=== PATIENT | female | born 1960 | race Caucasian/White ===

== ENCOUNTER → 2019-09-14 10:30 | Outpatient (CLI) | payer BC, SELFPAY ==
[2019-09-15 15:07] LABS: Covid-19 Nasal PCR Sendout Lex NOT DETECTED
== END ==
PROVIDERS: PCP Family Medicine; Visit Provider Family Medicine
DX: Z03.818 Encounter for observation for suspected exposure to other biological agents ruled out (principal)
CPT/HCPCS: U0004

== ENCOUNTER → 2019-12-09 09:42 | Outpatient (CLI) | payer BC, SELFPAY ==
--- NOTE | 2019-12-09 09:49 | XR_ITS ---
PROCEDURE: XR LUMBAR SPINE MIN 4V CLINICAL INDICATION: LOW BACK PAIN AND RADICULOPATHY COMPARISON: CR Lumbar spine from 10/27/2018 FINDINGS: No fracture or dislocation. No lytic or blastic change. There is normal mineralization. There is mild lumbar curvature convex left. No fracture or dislocation. Mild kyphosis of the thoracolumbar junction. There is degenerative disc disease at L2-L3 L3-L4 and L4-5 and mild chronic wedging appearance of L1.. There is minimal wedging also noted at L3-L4 and L5. This may also be chronic but appears slightly progressed compared to 10/27/2018. The SI joints have an unremarkable appearance. There is a moderate amount of retained colonic feces. IMPRESSION: 1. Mild lumbar spondylosis as described above. 2. Mild wedging of L3-L4 and L5 which may be chronic but appears slightly greater compared to 10/27/2018. MRI may provide further evaluation to determine if there is any acute wedge compression changes. Dictated by: Ryan Guadalupe MD 12/09/2019 17:18 Ryan Guadalupe MD in [place] 12/09/2019 17:18
== END ==
PROVIDERS: PCP Family Medicine; Visit Provider Family Medicine
DX: M54.5 Low back pain (principal); M54.16 Radiculopathy, lumbar region
CPT/HCPCS: 72110

== ENCOUNTER → 2020-03-10 11:55 | Outpatient (CLI) | payer BC, SELFPAY ==
[2020-03-11 13:37] LABS: Covid-19 Nasal PCR Sendout Lex NOT DETECTED
== END ==
PROVIDERS: PCP Family Medicine; Referring Provider Family Medicine; Visit Provider Family Medicine
DX: Z03.818 Encounter for observation for suspected exposure to other biological agents ruled out (principal)
CPT/HCPCS: U0004

== ENCOUNTER 2020-04-14 08:00 | Outpatient (RCR) | payer BC, SELFPAY | END 2020-04-14 08:05 | disposition home or self-care (01) | LOC: PT 08:00 | PROVIDERS: PCP Family Medicine; Visit Provider Orthopaedic Surgery | DX: M54.5 Low back pain (principal) | CPT/HCPCS: 97010; 97014; 97110; 97163; G0283 ==

== ENCOUNTER → 2020-06-03 12:02 | Outpatient (CLI) | payer BC, SELFPAY | PROVIDERS: PCP Family Medicine; Visit Provider Family Medicine | DX: Z03.818 Encounter for observation for suspected exposure to other biological agents ruled out (principal); Z20.822 Contact with and (suspected) exposure to COVID-19 | CPT/HCPCS: U0003 ==

== ENCOUNTER 2020-06-11 14:07 | Emergency (ER) | payer BC, SELFPAY ==
[2020-06-11 14:10] VITALS: BP 98/61; PULSE 85; RESP 20; TEMP 36.8; O2SAT 99; BMI 34.7
[2020-06-11 14:30] LABS: UTC Strep Screen (Rapid) Negative (Negative)
--- NOTE | 2020-06-11 14:38 | HMH.EDUTC ---
[facility] Disposition Clinical Impression: Bronchitis Sinusitis Qualifiers: Sinusitis location: unspecified location Chronicity: unspecified Qualified Code(s): J32.9 - Chronic sinusitis, unspecified Disposition: Home, Self-Care Condition on Discharge: Good Instructions: Sinusitis, Sinus Headache, Acute Bronchitis, DI for Sinusitis, DI for Acute Bronchitis Additional Instructions: ? Start antibiotic today. Be sure to complete entire prescription even if feeling better ? Monitor temp. Tylenol every 4 hours as needed and / or ibuprofen every 6 hours as needed ( As long as your primary care physician has told you that it ok to take both. For fever/aches/pains ER if no less than 101 despite Tylenol or Motrin ? Humidifier/vaporizer or hot steamy shower ? Mucinex Over the counter during the day for your cough and cough suppressant only at night. Be sure to drink lots of water. *Tessalon Perles will not cause drowsiness but use at bedtime to help stop cough so that you may get some rest. *Start steroid today. Helps with inflammation therefore, cough and wheezing. Follow directions on the package. Reviewed side effects. Patient reports taking them before. Follow up IMMEDIATELY for new or worsening of symptoms OR no noticeable improvement over the next 48-72 hours. 911 immediately for any life threatening symptoms such as chest pain or difficulty breathing Prescriptions: methylPREDNISolone [Medrol 4mg tab] 4 mg PO DIRECTED #21 tab Transmission Status: Pending to [facility] Benzonatate [Tessalon Perle 100mg Cap*] 100 mg PO TID PRN #30 cap PRN Reason: Cough Transmission Status: Pending to [facility] Azithromycin [Z-Emmett 250mg Tab] 250 mg PO DIRECTED #6 tab Transmission Status: Pending to [facility] Referrals: Kalie James [Primary Care Provider] - As needed Time of Disposition: 14:49 Medical Decision Making - Jon Inquiry Pt receiving controlled substance: No Jon was queried for this patient: No Vital Signs: 06/11/20 14:10 Temperature 98.2 F Temperature Source Oral Pulse Rate [Left Brachial] 85 Respiratory Rate 20 Blood Pressure [Left Arm] 98/61 L Blood Pressure Mean [Left Arm] 73 Blood Pressure Source [Left Arm] Automatic Cuff Blood Pressure Position [Left Arm] Sitting 02 Sat by Pulse Oximetry 99 Oxygen Delivery Method Room Air - Lab Data Lab results reviewed: Yes: I reviewed the patient's lab results. Lab Results 06/11/20 14:18: Strep Scn Rapid Clinic Negative Orders (Tests/Meds): ORDERS Category Date Time Status Strep Screen Confirmation Stat Micro 06/11/20 14:18 Received [facility] HPI - General Stated complaint: Sore Throat Cough soreness in chest Time Seen by Provider: 06/11/20 14:41 Mode of Arrival: Ambulatory Source of Information: Patient Limitations: No Limitations Description of Symptoms (Recalled from Triage Doc. by RN): PATEINT SORE THROAT AND SORE CHEST X 2 WEEKS HEENT Symptoms (Recalled from RN notes): Yes Resp Symptoms (Recalled from RN notes): No Skin Symptoms (Recalled from RN notes): No MS Symptoms (Recalled from RN notes): No Functional Status (Recalled from RN notes): WNL - History of Present Illness Provider Complaint: Patient states that she has been having sore throat and feels like she is having sinus pressure States that she has some drainage in the back of her throat and feels like it is trying to move into her chest like she had before with bronchitis States that she isnt coughing anything up and last week she felt pressure in her sinuses and felt like her teeth was sore States that ribs feel sore at times sneezing and cough. Denies Productive cough - Related Data Previous Rx's Medication Instructions Recorded Ibuprofen [Ibuprofen 600mg 600 mg PO Q6HP PRN #30 tab 12/15/18 Tablet] Azithromycin [Z-Emmett 250mg Tab] 250 mg PO DIRECTED #6 tab 06/11/20 Benzonatate [Tessalon Perle 100mg 100 mg PO TID PRN #30 cap
[2020-06-11 14:58] VITALS: BP 98/61; PULSE 85; RESP 20; TEMP 36.8; O2SAT 99
== END 2020-06-11 15:00 | disposition home or self-care (01) ==
PROVIDERS: Emergency Provider Nurse Practitioner; PCP Family Medicine
DX: J20.9 Acute bronchitis, unspecified (principal); J32.9 Chronic sinusitis, unspecified
CPT/HCPCS: 87880; 99202; G0463

== ENCOUNTER → 2020-08-08 14:53 | Outpatient (POV) | payer BC, SELFPAY | PROVIDERS: Visit Provider Nurse Practitioner Family | DX: Z00.00 Encounter for general adult medical examination without abnormal findings (principal) ==

== ENCOUNTER → 2020-10-26 13:08 | Outpatient (CLI) | payer BC, SELFPAY | PROVIDERS: Visit Provider Internal Medicine Gastroenterology | DX: Z01.812 Encounter for preprocedural laboratory examination (principal); Z20.822 Contact with and (suspected) exposure to COVID-19; Z12.11 Encounter for screening for malignant neoplasm of colon | CPT/HCPCS: U0003 ==

== ENCOUNTER 2020-10-28 07:06 | Day surgery (SDC) | payer BC, SELFPAY ==
[2020-10-25 09:10] VITALS: BMI 34.7
[2020-10-28] VITALS (7 sets, daily range): BP systolic 122–158; BP diastolic 64–82; PULSE 63–76; RESP 18; TEMP 36.2–36.5; O2SAT 92–100
--- NOTE | 2020-10-28 07:45 | HMH.ANESCL ---
[facility] Anesthesia Checklist - Structural Data Admitted From: Home Planned Operative Procedure/s: colonoscopy Consent for Planned Operative Procedure(s) Verified: Yes - Airway Assessment C-Spine Mobility Assessed: Yes TMJ Mobility Assessed: Yes Dentition: Good Dentition - Neurological Assessment Level of Consciousness: Awake, Alert, Appropriate - Anesthesia Plan Anesthesia Risk discussed: Yes Anesthesia Plan: Verified ASA Class: II Anesthesia Type: MAC [facility] History I have reviewed the patient's past medical history: Yes Medical History: Reports:: Cancer (BREAST) Denies:: Diabetes Mellitus Type 1, Diabetes Mellitus Type 2, Internal Pacemaker, MRSA, Seizures *Have you ever received a pneumonia vaccine?: No *Have you received a flu vaccine this season?: No Anesthesia experience/problems:: none Laterality Cases: Bilateral: Mastectomy Other Surgeries: No: Pacemaker Amputation: No Fractures: No - *Social History Last grade of school completed: High school graduate Smoking Status: Never smoker #Yrs smoked (if former smoker): 2 Alcohol Intake: never Substance Use Type: denies use *Occupational Status:: other Housing: house Household Members: spouse *Travel in the last 8 weeks: None Family Hx:: Cancer
--- NOTE | 2020-10-28 08:06 | HMH.PROC ---
[facility] Procedure Note Procedure Note:: Colonoscopy Procedure Report: Colonoscopy Endoscopist: Willie Montez II, MD Referring physician: Kalie James DO Date of Procedure: October 28, 2020 Equipment: Olympus 190 variable stiffness pediatric colonoscope Sedation: MAC sedation Indication: Mrs. Arboleda is a 60-year-old female who has had some change in bowel habits and is here for diagnostic colonoscopy. The patient does have chronic longstanding constipation and usually may skip 1 or 2 days without a bowel movement. That has been her norm. A few months ago she had some episodes of bowel urgency with seepage before she could get to the bathroom. This was new in onset. She reports no abdominal pain, weight loss, rectal bleeding or family history of colon cancer. Her father had colon polyps. This is her first colonoscopy. Procedure: Prior to the procedure, a history and physical exam was performed, and patient's medications and allergies were reviewed. The risks, benefits and alternatives of the sedation and procedure were discussed with the patient. All questions were answered and informed consent was obtained. The patient was brought to the procedure room. Patient identification and proposed procedure were verified by the physician and the nurse. The patient was placed in a left lateral decubitus position and the scope was passed under direct vision. Throughout the procedure, the patient's blood pressure, pulse, and oxygen saturations were monitored continuously. The colonoscopy was accomplished without difficulty. The patient tolerated the procedure well. Findings: On digital rectal examination there was normal rectal sphincter tone. There were no external hemorrhoids. The colonoscope was introduced through the anal canal to the rectum and advanced to the cecum. The ileocecal valve and appendiceal orifice were identified. The scope was advanced a short distance into the ileum which appeared grossly normal. The scope was then withdrawn into the colon. The cecum, ascending, transverse, descending, sigmoid and rectum were grossly normal. There were no mucosal abnormalities identified. There was a moderate amount of solid plant residue throughout the colon that impaired visualization minor amount. Upon retroflexion within the rectum there were grade 1 internal hemorrhoids.The preparation was fair throughout with Binger Preparation Score of 6-7 out of 9. The cecal time was 10 minutes. Impression: 1. Normal colonoscopy with intubation of the terminal ileum Plan: I do feel the patient has some pelvic floor dyssynergia with some outlet constipation and incomplete defecation. I do feel this fecal incontinence is intermittent overflow fecal incontinence and possibly there is some likely sacral nerve (S2-S3 nerve root) injury playing some role. I do not feel any abnormality of anal sphincter tone. I will inquire about bladder control and any lower chronic back pain.
== END 2020-10-28 09:29 | disposition home or self-care (01) ==
LOC: OUTP 07:08
PROVIDERS: PCP Family Medicine; Visit Provider Internal Medicine Gastroenterology
PROC: 0DJD8ZZ Inspection of Lower Intestinal Tract, Via Natural or Artificial Opening Endoscopic (ICD-10-PCS; CPT 45378; principal; 2020-10-28 08:00)
DX: R15.9 Full incontinence of feces (principal); Z86.010 Personal history of colon polyps; Z85.3 Personal history of malignant neoplasm of breast; E78.5 Hyperlipidemia, unspecified; F32.9 Major depressive disorder, single episode, unspecified; K21.9 Gastro-esophageal reflux disease without esophagitis; Z79.899 Other long term (current) drug therapy; Z80.0 Family history of malignant neoplasm of digestive organs
CPT/HCPCS: 45378

== ENCOUNTER 2022-10-07 15:06 | Emergency (ER) | payer BC, SELFPAY ==
[2022-10-07 15:08] VITALS: BP 115/71; PULSE 71; RESP 16; TEMP 36.6; O2SAT 98; BMI 34.7
--- NOTE | 2022-10-07 15:20 | XR_ITS ---
PROCEDURE INFORMATION: Exam: XR Left Hand Exam date and time: 10/07/2022 3:24 PM Age: 62 years old Clinical indication: Pain; Finger(s); Left; Additional info: Injury left middle finger TECHNIQUE: Imaging protocol: Radiologic exam of the left hand. Views: 3 or more views. COMPARISON: No relevant prior studies available. FINDINGS: Bones/joints: Dorsal dislocation of the 3rd middle phalanx. No fractures. Other joints are well preserved. Soft tissues: No soft tissue gas, radiopaque foreign bodies, or masses. IMPRESSION: Dorsal dislocation of the 3rd middle phalanx of the left hand. No fracture is identified.
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
[2022-10-07 15:55] VITALS: BP 115/71; PULSE 71; RESP 16; TEMP 36.6; O2SAT 98
== END 2022-10-07 15:57 | disposition home or self-care (01) ==
PROVIDERS: Emergency Provider Emergency Medicine; PCP Family Medicine
DX: S63.283A Dislocation of proximal interphalangeal joint of left middle finger, initial encounter (principal); W22.8XXA Striking against or struck by other objects, initial encounter; Z23 Encounter for immunization
CPT/HCPCS: 26770; 73130; 90715; 96372; 99283; 99284

== ENCOUNTER 2023-01-04 15:00 | Outpatient (RCR) | payer BC, SELFPAY | END 2023-01-04 15:05 | disposition home or self-care (01) | LOC: OT 15:00 | PROVIDERS: PCP Family Medicine; Visit Provider Orthopaedic Surgery Hand Surgery | DX: S63.287A Dislocation of proximal interphalangeal joint of left little finger, initial encounter (principal) | CPT/HCPCS: 97010; 97014; 97110; 97140; 97164; 97166; G0283 ==

== ENCOUNTER → 2023-03-15 12:58 | Outpatient (CLI) | payer BC, SELFPAY ==
--- NOTE | 2023-03-15 13:13 | US_ITS ---
FINAL REPORT CLINICAL HISTORY: HISTORY OF BREAST CANCER AXILLARY MASS FINDINGS: Limited sonographic images of the left axilla were obtained. There are several presumed nodes measuring up to 2.3 cm which are nonspecific but may be reactive or neoplastic. IMPRESSION: Nonspecific nodes in the left axilla. If indicated, follow-up PET-CT may be helpful. Reviewed, Interpreted and Dictated by Roque Hannon III, MD Transcribed by Nazanin Gamboa Authenticated and [facility]
== END ==
LOC: RAD 13:01
PROVIDERS: PCP Family Medicine; Visit Provider Family Medicine
DX: R22.32 Localized swelling, mass and lump, left upper limb (principal); Z85.3 Personal history of malignant neoplasm of breast
CPT/HCPCS: 76882

== ENCOUNTER → 2023-05-08 15:00 | Outpatient (CLI) | payer BC, SELFPAY | PROVIDERS: PCP Family Medicine; Visit Provider Family Medicine | DX: G47.33 Obstructive sleep apnea (adult) (pediatric) (principal); G47.36 Sleep related hypoventilation in conditions classified elsewhere; R06.83 Snoring; R40.0 Somnolence; R41.3 Other amnesia | CPT/HCPCS: G0399 ==

== ENCOUNTER 2023-05-14 16:42 | Outpatient (CLI) | payer BC, SELFPAY ==
[2023-05-14 17:48] LABS: Blood Urea Nitrogen 19 mg/dl (7-17)
[2023-05-14 17:49] LABS: Estimated Glomerular Filt Rate 84 ml/min (>60); GFR (African American) 102 ML/MIN (>60)
== END 2023-05-14 23:59 ==
LOC: LAB 16:42
PROVIDERS: PCP Family Medicine; Visit Provider Internal Medicine
DX: R07.9 Chest pain, unspecified (principal)
CPT/HCPCS: 36415; 82565; 84520

== ENCOUNTER 2023-05-17 11:57 | Outpatient (CLI) | payer BC, SELFPAY ==
--- NOTE | 2023-05-17 11:57 | CT_ITS ---
APPROVED REPORT [employer]: CLINICAL INDICATION Chest Pain TECHNIQUE Image Acquisition: A 128 slice MDCT scanner (6APTa View) was used for data acquisition. A noncontrast coronary calcium scan was performed. A CT attenuation threshold of 130 Hounsfield units (HU) was used for the detection of calcium in contiguous voxels of 1 sq mm in area to be counted as individual lesions. Bolus tracking in the ascending aorta with a threshold of 180 HU was performed. Immediately afterwards, ECG synchronized cardiac CT was then performed from the cardiac base to apex using retrospective gating with ECG tube current modulation. A total of 85 mL of Isovue 370 mg/mL contrast medium was administered at 5 mL/sec followed by a saline flush using a biphasic injection protocol. A tube voltage of 120 KVp was used. The patient received the following medications prior to the cardiac CT. 75 mg of oral metoprolol 15 mg of oral ivabradine 0.8 mg of sublingual nitroglycerin The average heart rate at the time of acquisition was 53 bpm and regular. Image Reconstruction Transaxial images were reconstructed at 0.67 mm slide thickness. Data was reviewed interactively on an advanced workstation capable of 2 and 3-dimensional displays in all conventional reconstruction formats, including multiplanar reformations, maximum intensity projections, curved multiplanar reformations, and volume rendered reconstructions. When applicable, selected routine images describing the relevant coronary anatomy and pathology were saved and sent to PACS. Complications None Technical Quality Overall image quality was good. Coronary artery opacification was adequate. Total DLP (Dose-Length Product) is 1539.0 mGy-cm. The reported value represents the total of one or more individual components during the CT acquisition of this date and at this time, and as such, the same value may appear in more than one CT report depending on the interpreting/reporting physicians. COMPARISON None FINDINGS CT Coronary Calcium Scoring LMA (Left Main Artery) = 0 LAD (Left Anterior Descending) = 0 LCX (Left Coronary Circumflex) = 0 RCA (Right Coronary Artery) = 0 Total Calcium Score = 0 using the AJ-130 method. The interpretation of the calcium heart score is based on the following continuum*: 0 = no calcified plaque detected (risk of coronary artery disease is very low ??? less than 5%) 1-10 = calcium detected in extremely minimal levels (risk of coronary diseases is still low ??? less than 10%) 11-100 = mild levels of plaque detected with certainty (mild or minimal narrowing of heart arteries is likely) 101-400 = definite,at least moderate levels of plaque detected (relatively high risk of a heart attack within 3-5 years) >401-999 = extensive levels of plaque detected (high risk of heart attack, high levels of vascular disease are present, high likelihood of at least one significant coronary narrowing) *The calcium heart score quantifies the burden of coronary calcification/plaque in the coronary arteries. The calcium heart score is not able to evaluate the presence or burden of non-calcified (i.e. soft) plaque. There is no identifiable calcification in the aortic valve, mitral annulus or mitral valve, pericardium, or myocardium. Coronary CT Angiography The coronary arterial system is right dominant. Quantitative Stenosis Grading: Left Main (LM): The left main originates normally from the left sinus of Valsalva. The LM bifurcates into the left anterior descending artery and left circumflex artery. The LM is patent with no evidence of atherosclerosis. Left Anterior Descending (LAD) and Diagonal Branches: The LAD gives off 2 diagonal branches. The LAD and its branches are patent with no evidence of atherosclerosis. There is no evidence of LAD-myocardial bridge. Left Circumflex (LCX) and Obtuse Marginals (OM): The LCX gives off 1 Obtuse Marginal (OM) branches. The LCX and its branches are patent with no evidence of atherosclerosis. Right Coronary Artery (RCA): The RCA originates normally from the right sinus of Valsalva. The RCA gives off a posterior descending artery (PDA) and posterolateral (PL) branches. The RCA and its branches are patent with no evidence of atherosclerosis. Non-Coronary Cardiac Findings: Analysis of the left ventricular (LV) structure and function was performed after 3-D reconstruction of the LV from axial images, with user-corrected automatic contouring for assessment of LV volumes and user-defined reconstruction from oblique planes for measurement of 3-D cardiac structure and function. LVEDV: 176 mL LVESV: 79 mL SV: 97 mL LVEF: 55% -The left ventricle is normal in size with normal left ventricular systolic function. -There is a distal left atrial appendage filling defect, which likely represents reduced contrast flow into the distal SUSANA at the time of image acquisition as no delayed images were obtained. However, true filling defect cannot be entirely ruled out. -Two right pulmonary veins and two left pulmonary veins drain normally into the left atrium. -No pericardial thickening or calcification. -Central and branch pulmonary arteries in the [id number] are unremarkable. -Thoracic aorta within the visualized thoracic aortic-branches in the [id number] is unremarkable. Extracardiac Structures No significant extra-cardiac findings. Note, however, that this study is focused on the cardiac findings. IMPRESSION -No coronary calcification with an Agatston score = 0 using the AJ-130 method. -No evidence of significant flow-limiting atherosclerosis of the coronary arteries. -No coronary anomalies are noted. -CAD-RADS 0. Management recommendations per ACC/AHA guidelines*, as clinically appropriate. *Recommendations: CAD RADS 0: Reassurance. Consider non-atherosclerotic causes of chest pain. CAD RADS 1: Consider non-atherosclerotic causes of chest pain. Consider preventive therapy and risk factor modification. CAD RADS 2: Consider non-atherosclerotic causes of chest pain. Consider preventive therapy and risk factor modification, particularly for patients with nonobstructive plaque in multiple segments. CAD RADS 3: Consider further functional testing. Consider symptom-guided anti-ischemic and preventive pharmacotherapy as well as risk factor modification per published guideline statements. CAD RADS 4A: Consider further functional testing or invasive coronary angiography with revascularization per published guideline statements. Consider symptom-guided anti-ischemic and preventive pharmacotherapy as well as risk factor modification per published guideline statements. CAD RADS 4B: Invasive coronary angiography recommended with revascularization per published guideline statements. Consider symptom-guided anti-ischemic and preventive pharmacotherapy as well as risk factor modification per published guideline statements. CAD RADS 5: Consider invasive angiography and/or viability assessment with revascularization per published guideline statements. Consider symptom-guided anti-ischemic and preventive pharmacotherapy as well as risk factor modification per published guideline statements. CRITICAL RESULT None COMMUNICATION Per this written report The coronary and cardiac findings of this CCTA were reviewed, reported, and signed by Alpesh Castillo MD ([employer]) Conclusion Electronically signed by : Lucy Castillo MD 05/20/2023 17:10:54
--- NOTE | 2023-05-17 12:08 | CA_ITS ---
APPROVED REPORT EXAM: Comprehensive 2D, Doppler, and color-flow Echocardiogram Brick Cleaner: FABIANA Brennan, RVS Ht: 5 ft 1 in Wt: 195lbs BSA: 1.87 BP: 136/72 mmHg Indications: CP, Fatigue, Fsmily History of Heart disease, Murmur 2D Dimensions IVSd 0.98 cm LVEF (Visual) 46.30 % PWd 1.28 cm LA Volume 59.00 mL LVDd 4.31 cm LA Volume Index [id number] mL/m2 (M/F) 16-34 LVDs 3.32 cm Left Atrium 3.40 cm M-Mode Dimensions RVDd 1.55 cm (0.9-2.6) LA Diam 4.08 cm (1.9-4.0) LVDd 5.30 cm (3.5-5.7) LVDs 3.49 cm (3.5-5.7) IVSd 0.83 cm (0.6-1.1) PWd 0.91 cm (0.6-1.1) EF (Teich) 62.70% EPSs 1.26 cm FS 34.20% EDV (Teich) 135.30 mL TAPSE 1.83 (<1.7) ESV (Teich) 50.50 mL LV Diastology E Decel Time 233 (160-240 msec) E/A Ratio 1.16 MED A' 7.70 cm/s LAT A' 9.90 cm/s Aortic Valve VENTURA Index 1.09 cm2/m2 AoV Peak Garry. 144.0 (50-130 cm/s) AO Peak GR. 8.20 mmHg AO Mean GR. 4.10 (<5 mmHg) AO VTI 31.0 (18-25 cm) VENTURA (VTI) 2.08 (2.5-4.5 cm2) Mitral Valve MV A Velocity 75.0 (40-130 cm/s) E/A Ratio 1.16 Tricuspid Valve TR P. Velocity 201.00 cm/s RAP Estimate 10.00 mmHg RVSP 26.20 mmHg Left Ventricle The left ventricle is normal size. The left ventricular systolic function is normal. The left ventricular ejection fraction is within the normal range. There is normal left ventricular wall thickness. There is normal LV segmental wall motion. The left ventricular diastolic function is normal. LVEF is 55%. Right Ventricle The right ventricle is normal size. The right ventricular systolic function is normal. Atria The left atrium size is normal. The right atrium size is normal. The interventricular septum is not well-visualized. Aortic Valve The aortic valve opens well. There is no aortic valvular stenosis. No aortic regurgitation is present. Mitral Valve The mitral valve is normal in structure. No evidence of mitral valve stenosis. Mild mitral regurgitation. Tricuspid Valve The tricuspid valve leaflets are thin and pliable. Trace tricuspid regurgitation. There is insufficient TR jet to estimate RVSP. Pulmonic Valve The pulmonary valve is normal in structure. Trace pulmonic regurgitation. Great Vessels The aortic root is normal in size. The ascending aorta is not well-visualized. The IVC is not well-visualized. Pericardium There is no pericardial effusion. Other Information Study Quality: Technically Difficult Conclusion Technically difficult study due to poor acoustic windows. Normal biventricular systolic function. Mild MR. Electronically signed by : Lucy Castillo MD 05/20/2023 12:48:16
[2023-05-17 12:18] VITALS: BP 131/89; PULSE 83; RESP 16; TEMP 36.6; O2SAT 99; BMI 35.6
[2023-05-17] MEDS: METOPROLOL TARTRATE 50MG TABLET *IVABRADINE+METOPROLOL REGIMINE 75 MG PO (12:23)
[2023-05-17] MEDS: IVABRADINE HCL 7.5MG TABLET *IVABRADINE+METOPROLOL REGIMINE 15 MG PO (12:23)
[2023-05-17 13:08] VITALS: BP 118/79; PULSE 62; RESP 16; O2SAT 96
[2023-05-17] MEDS: NITROGLYCERIN 0.4MG SL TABLET 0.800000000000000044 MG SL (13:08)
[2023-05-17 13:11] VITALS: BP 109/77; PULSE 61; RESP 16; O2SAT 97
[2023-05-17 13:16] VITALS: BP 90/66; PULSE 60; RESP 16; O2SAT 95
[2023-05-17 13:20] VITALS: BP 90/49; PULSE 57; RESP 16; O2SAT 97
[2023-05-17 13:29] VITALS: BP 103/59; PULSE 63; RESP 16; O2SAT 96
[2023-05-17] MEDS: SODIUM CHLORIDE 0.9% 10ML SYR (RAD ONLY) 10 ML IV (13:29)
[2023-05-17] MEDS: IOPAMIDOL-370 (76%);100ML BOTTLE 85 ML IV (13:29)
[2023-05-17] MEDS: 0.9 % SODIUM CHLORIDE 50 ML VIAL IV (13:29)
== END 2023-05-17 13:32 | disposition home or self-care (01) ==
PROVIDERS: PCP Family Medicine; Visit Provider Physician Assistant
DX: R07.9 Chest pain, unspecified (principal); R53.83 Other fatigue; Z82.49 Family history of ischemic heart disease and other diseases of the circulatory system; R94.31 Abnormal electrocardiogram [ECG] [EKG]
CPT/HCPCS: 75571; 75574; 93306; Q9967